=== PATIENT | male | born 1975 | race Caucasian/White ===

== ENCOUNTER 2018-09-28 06:29 | Emergency (ER) | payer BC ==
[~2018-09-28] VITALS: Wt 125.0 kg
[2018-09-28] MEDS ORDERED: ASPIRIN 325 MG TAB PO STA (07:08)
--- NOTE | 2018-09-28 07:14 | ERD ---
ER Documentation Chief Complaint Chief Complaint chest pressure for 1 wk. no distress or sob. no diaphoresis noted. no n/v HPI 43-year-old male with no significant previous medical history presents to the ED for evaluation of chest pain. 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 Symptoms resolved after 1 hour. Patient subsequent was evaluated by his primary care physician and reports negative work-up and referred to cardiology for further evaluation but his appointment is not till next week. Today while driving to work he again experienced a similar episode which has since resolved. Currently asymptomatic. Denies abdominal pain or back pain. No leg pain or swelling. No shortness of breath or cough. Denies headache, neck pain, visual changes, focal weakness or numbness. Admits to mild anxiety but denies depression. No URI symptoms, fevers or chills. ROS All systems reviewed and are negative except as per history of present illness. Medications Home Meds Active Scripts Aspirin* (Aspirin* EC) 81 Mg Tablet., 81 MG PO DAILY for 30 Days, TAB Prov:AISHWARYA EVANS MD 09/28/18 Allergies Allergies: Coded Allergies: No Known Allergy (Unverified , 09/28/18) PMhx/Soc Reviewed in chart. As per HPI. Medical and Surgical Hx: pt denies Medical Hx History of Surgery: Yes (RT KNEE) Anesthesia Reaction: No Hx Neurological Disorder: No Hx Respiratory Disorders: No Hx Cardiac Disorders: No Hx Psychiatric Problems: No Hx Miscellaneous Medical Probl: No Hx Alcohol Use: Yes (OCCASIONAL) Hx Substance Use: No Hx Tobacco Use: No Smoking Status: Never smoker FmHx Grandmother: Diabetes. No family history of coronary artery disease or sudden cardiac . Physical Exam Vitals Vital Signs Date Temp Pulse Resp B/P (MAP) Pulse Ox O2 O2 Flow FiO2 Time Delivery Rate 09/28/18 98.7 59 20 111/79 99 Room Air 13:42 (90) 09/28/18 60 16 104/81 100 Room Air 11:54 (89) 09/28/18 98.2 63 16 107/75 100 Room Air 10:14 (86) 09/28/18 Nasal 2 07:05 Cannula 09/28/18 97.6 64 18 145/76 98 06:37 (99) Physical Exam Const: No acute distress Head: Atraumatic Eyes: Normal Conjunctiva ENT: Normal External Ears, Nose and Mouth. Neck: Full range of motion. No meningismus. Resp: Clear to auscultation bilaterally Cardio: Regular rate and rhythm, no murmurs Abd: Soft, non tender, non distended. Normal bowel sounds Skin: No petechiae or rashes Back: No midline or flank tenderness Ext: No cyanosis, or edema Neur: Awake and alert Psych: Normal Mood and Affect Result Diagram: 09/28/1871909/28/18719 Results 24 hrs Laboratory Tests Test 09/28/18 07:20 09/28/18 09:45 White Blood Count 5.1 10^3/ul Red Blood Count 5.17 10^6/ul Hemoglobin 15.0 g/dl Hematocrit 45.4 % Mean Corpuscular Volume 87.8 fl Mean Corpuscular Hemoglobin 29.0 pg Mean Corpuscular Hemoglobin Concent 33.0 g/dl Red Cell Distribution Width 12.3 % Platelet Count 185 10^3/UL Mean Platelet Volume 10.8 fl Immature Granulocytes % 0.200 % Neutrophils % 47.7 % Lymphocytes % 42.8 % Monocytes % 6.9 % Eosinophils % 1.6 % Basophils % 0.8 % Nucleated Red Blood Cells % 0.0 /100WBC Immature Granulocytes # 0.010 10^3/ul Neutrophils # 2.4 10^3/ul Lymphocytes # 2.2 10^3/ul Monocytes # 0.4 10^3/ul Eosinophils # 0.1 10^3/ul Basophils # 0.0 10^3/ul Nucleated Red Blood Cells # 0.0 10^3/ul Sodium Level 142 mmol/L Potassium Level 3.9 mmol/L Chloride Level 106 mmol/L Carbon Dioxide Level 27 mmol/L Anion Gap 9 Blood Urea Nitrogen 11 mg/dl Creatinine 0.90 mg/dl Est Glomerular Filtrat Rate mL/min > 60 mL/min Glucose Level 126 mg/dl Calcium Level 9.5 mg/dl Troponin I < 0.012 ng/ml < 0.012 ng/ml Current Medications Medications Dose Sig/Marina Start Time Status Last (Trade) Ordered Route PRN Stop Time Admin Dose Reason Admin Aspirin 325 mg ONCE STAT 09/28/18 DC 09/28/18 (Aspirin) PO 07:08 09/28/18 07:17 07:10 Procedures/MDM DOCUMENTS REVIEWED: ED nurse, no prior records EKG #1: Time: 06:35. Sinus rhythm. Ventricular rate 64. Normal GA interval. QRS duration 112 ms. Left axis deviation. No acute ST segment elevation or depression. No ectopy. My Interpretation EKG #2: Time: 09:54. Sinus rhythm. Ventricular rate 56. Normal GA interval. QRS duration 114 ms. Left axis deviation. No acute ST segment elevation or depression. No ectopy. My Interpretation IMAGING: Chest AP portable. Cardiac silhouette is normal. Poor inspiration with mild atelectasis but no effusions or infiltrates. No mediastinal widening. No abnormalities of bony thorax. My interpretation. REEXAMINATION/REEVALUATION: Time: 07:40. No chest pain or SOB. SR without Ectopy Time: 0853: Asymptomatic. No Chest pain Time: 10:15. Doing well. No chest pain Time: 13:00. Asymptomatic. SR without ectopy. OBSERVATION NOTE: At 07:15 the patient was entered into observation status to establish the need for admission. During this time the patient was treated for chest pain. Additionally, extensive evaluation including, CBC, Chemistry, CXR serial EKGs and troponins were preformed with results interpreted as above. Vitals signs were monitored and multiple, frequent reexaminations were performed. At 12:45 the patient was reexamined; VSS, afebrile. satellite project site monitor reveals sinus rhythm without ectopy. No chest pain, palpitations or shortness of breath. Based on these findings the patient was discharged from observation as it was determined that the met criteria for discharge. TOTAL OBSERVATION TIME: 5 hours. MEDICAL DECISION MAKIN-year-old male with no significant previous medical history presents to the ED for evaluation of chest pain. The patient presents with chest pain and I considered pulmonary embolism, aortic dissection, pneumothorax, gastritis/GERD, anxiety, musculoskeletal pain among other diagnoses. Aspirin given. Evaluation for acute coronary syndrome was performed. The HEART score was utilized for risk stratification and found to be 1. Repeat EKG and troponin @ 3 hours were unchanged. Based on this evaluation the patients risk of major adverse cardiac events is <1%. Shared decision making occurred with patient and the decision has been made to discharge the patient for outpatient evaluation and functional study within 72 hours. Stable for discharge with precautionary instructions and outpatient follow-up as counseled. Counseled patient regarding diagnosis and diagnostic results. Expressed understanding that a cardiac etiology although unlikely is not ruled out and need for mandatory reevaluation within 48 to 72 hours or immediate return to ER if symptoms recur, worsen or any other concerns. Departure Diagnosis: Primary Impression: Chest pain with low risk for cardiac etiology Condition: AISHWARYA Dubois MD September 28, 2018 07:14
[2018-09-28] MEDS ORDERED: ASPI-817 PO (13:12)
[2018-09-28 13:42] VITALS: BP 111/79; PULSE 59; RESP 20
== END 2018-09-28 13:44 | disposition home or self-care (01) ==
LOC: E/R 06:29
DX: R07.89 Other chest pain (principal); Z79.82 Long term (current) use of aspirin
CPT/HCPCS: 36415; 71045; 80048; 84484; 85025; 93005